=== PATIENT | female | born 1985 | race African-American/Black ===

== ENCOUNTER 2017-06-13 10:49 | Emergency (ER) | payer MEDICAID ==
[~2017-06-13] VITALS: Ht 162.6 cm; Wt 100.7 kg
--- NOTE | 2017-06-13 12:06 | Emergency Room Report ---
History of Present Illness General Chief Complaint: Flu Like Symptoms Source: Patient Present Illness HPI Patient states that for the past 5 days she has had sore throat, ear pain, red eyes. She does have a little bit of a cough. She did get seen at an emergency department 2 days ago. She was given erythromycin ointment for her eyes. She states that this has not worked. She denies fever or chills. She states that she also noticed that her tonsils had white patches on them. She states that she gets tonsillitis very often. She denies neck pain or headache. She denies neck stiffness. She denies chest pain or shortness of breath. She denies abdominal pain. She has no other complaints. Allergies: Coded Allergies: No Known Allergies (Unverified , 06/13/17) Patient History Past Medical History: none Social History: Denies: smoking, alcohol use, drug use Reviewed Nursing Documentation: PMH: Agreed, PSxH: Agreed Nursing Documentation-PMH Past Medical History: No Stated History Review of Systems All Other Systems: negative except mentioned in HPI Physical Exam Vital Signs Date Time Temp Pulse Resp B/P (MAP) Pulse Ox O2 Delivery O2 Flow Rate FiO2 06/13/17 11:02 99.0 112 20 139/90 99 Room Air Sp02 EP Interpretation: reviewed, normal General Appearance: no apparent distress, alert, GCS 15, non-toxic Head: normocephalic, atraumatic Eyes: bilateral eye PERRL, bilateral eye other - mild conjunctival erythema ENT: hearing grossly normal, no angioedema, normal voice, uvula midline, other - Patchy tonsillar exudate bilaterally with mild swelling. Right TM with clear fluid behind it. Neck: full range of motion, supple/symm/no masses Respiratory: chest non-tender, lungs clear, normal breath sounds, speaking full sentences Cardiovascular #1: regular rate, rhythm, no edema Gastrointestinal: normal inspection, non-distended Rectal: deferred Musculoskeletal: back normal, gait/station normal, normal range of motion, non- tender Neurologic: alert, oriented x3, responsive, motor strength/tone normal, sensory intact, speech normal Psychiatric: judgement/insight normal, memory normal, mood/affect normal, no suicidal/homicidal ideation Skin: normal color, no rash, warm/dry, well hydrated Medical Decision Making Diagnostic Impression: Primary Impression: Acute recurrent tonsillitis Additional Impressions: Conjunctivitis URI (upper respiratory infection) Viral syndrome ER Course This patient has a clinical presentation consistent with pharyngitis an exudative tonsillitis. Physical exam is consistent with a viral etiology, however, the patient does have patchy white exudate on her tonsils and a history of recurrent tonsillitis. I will go ahead and put her on a course of antibiotics, although I did educate the patient that this may not shortenen or change the course of her illness. There is no evidence of peritonsillar abscess or deep neck abscess. There is no airway edema. Overall, this patient had a very benign examination. The patient is instructed to get over-the- counter lozenges. I will also give the patient Motrin as a pain medication and anti-inflammatory. The patient was given return precautions and followup instructions. Last Vital Signs Date Time Temp Pulse Resp B/P (MAP) Pulse Ox O2 Delivery O2 Flow Rate FiO2 06/13/17 11:07 112 20 Room Air 06/13/17 11:02 99.0 139/90 99 Status: improved Disposition: HOME, SELF-CARE Condition: Improved Referrals: NOT CHOSEN ROSI/,REFERRING (PCP) GIOVANNA DOUGHERTY D.O. Jun 13, 2017 12:06
[2017-06-13] MEDS ORDERED: AUGMENTIN 875-1 EAC1 ORAL (12:08)
[2017-06-13 12:15] VITALS: BP 132/80
== END 2017-06-13 12:15 | disposition home or self-care (01) ==
LOC: EMR 11:25
DX: J03.91 Acute recurrent tonsillitis, unspecified (principal); H10.9 Unspecified conjunctivitis; J06.9 Acute upper respiratory infection, unspecified; B34.9 Viral infection, unspecified
CPT/HCPCS: 99283